=== PATIENT | female | born 2000 | race Caucasian/White ===

== ENCOUNTER 2025-08-21 19:06 | Emergency (ER) | payer OTHER, SELFPAY ==
[~2025-08-21] VITALS: Ht 154.9 cm; Wt 74.3 kg
[~2025-08-21 19:06] MED LIST: BACT800T5 PO; IBUP600T42 PO; ZOFR4TAB16 PO
[2025-08-21] MEDS: IBUPROFEN 600 MG TAB PO ONE (21:27)
[2025-08-21 21:40] VITALS: BP 126/78; TEMP 98; O2SAT 100
== END 2025-08-21 21:40 | disposition home or self-care (01) ==
LOC: M ED 19:06
DX: S13.4XXA Sprain of ligaments of cervical spine, initial encounter (principal); S66.919A Strain of unspecified muscle, fascia and tendon at wrist and hand level, unspecified hand, initial encounter; V47.5XXA Car driver injured in collision with fixed or stationary object in traffic accident, initial encounter; Y92.9 Unspecified place or not applicable; Y93.89 Activity, other specified; Y99.9 Unspecified external cause status; Z88.0 Allergy status to penicillin